=== PATIENT | female | born 1965 | race Caucasian/White ===

== ENCOUNTER 2023-09-20 17:16 | Emergency (ER) | payer SELFPAY ==
[~2023-09-20] VITALS: Ht 160 cm; Wt 56.4 kg
[2023-09-20 17:18] VITALS: BP 144/82; PULSE 97; TEMP 98.1
[2023-09-20] MEDS ORDERED: Ondansetron 4 MG/2 ML VIAL IV ONE (18:30)
[2023-09-20] MEDS ORDERED: fentaNYL 50 MCG/ML 2 ML VIAL IV ONE (18:30)
[2023-09-20] MEDS ORDERED: NS 1,000 ML IV ONE (18:30)
[2023-09-20] MEDS ORDERED: LORazepam 2 MG/ML 1 ML VIAL IV ONE ×2 (18:45→23:15)
[2023-09-20 18:54] LABS: COLLECTION METHOD IN
[2023-09-20 18:58] LABS: BASO # 0.1 K/mm3 (0.0-0.2); BASO % 0.4 % (0.0-2.0); EOS # 0.5 K/mm3 (0.0-0.7); EOS % 3.1 % (0.0-4.0); GRAN # 11.3 K/mm3 (1.4-6.5); GRAN % 73.5 % (42.2-75.2); HEMATOCRIT 42.1 % (37.0-47.0); HEMOGLOBIN 13.1 g/dl (12.5-16.0); LYMPH # 2.5 K/mm3 (1.2-3.4); LYMPH % 16.1 % (20.0-51.0); MEAN CELL VOLUME 80 fl (80.0-100.0); MEAN CORPUSCULAR HEMOGLOBIN 25 pg (27-31); MEAN CORPUSCULAR HGB CONC 31 g/dl (33.0-37.0); MEAN PLATELET VOLUME 9.8 fl (7.4-10.4); MONO % 6.5 % (1.7-9.3); PLATELET COUNT 560 K/mm3 (130-400); RED BLOOD COUNT 5.25 M/mm3 (4.10-5.30); REDCELL DISTRIBUTION WIDTH-CV 18.1 % (11.5-14.5)
[2023-09-20 19:10] LABS: URINE APPEARANCE CLEAR (CLEAR/HAZY); URINE BLOOD 2+ (NEGATIVE); URINE COLOR YELLOW (YELLOW); URINE GLUCOSE 3+ (NEGATIVE); URINE KETONE NEGATIVE (NEGATIVE); URINE NITRATE NEGATIVE (NEGATIVE); URINE PROTEIN(semi-quant) NEGATIVE (NEGATIVE); URINE UROBILINOGEN 0.2 E.U/dL (0.2-1.0)
[2023-09-20 19:15] LABS: TRICYCLIC ANTIDEPRESS URINE NEGATIVE (NEGATIVE)
[2023-09-20 19:15] LABS: ACETONE,SERUM NEGATIVE
[2023-09-20 19:17] LABS: ALANINE AMINOTRANSFERASE 16 U/L (0-55); ALBUMIN 3.2 g/dL (3.5-5.0); ALKALINE PHOSPHATASE 158 U/L (40-150); ANION GAP 12 mmol/L (7-16); AST,SGOT 12 U/L (5-34); BILIRUBIN,TOTAL 0.2 mg/dL (0.2-1.2); BLOOD UREA NITROGEN 7 mg/dL (10-20); C-REACTIVE PROTEIN 16.09 mg/dL (0.00-0.50); CHLORIDE 96 mEq/L (98-107); CREATININE, serum 1.13 mg/dL (0.57-1.11); POTASSIUM 3.8 mEq/L (3.5-4.5); SODIUM 132 mEq/L (136-145); TOTAL PROTEIN 8.4 g/dl (6.2-8.1)
[2023-09-20 19:19] LABS: GLUCOSE 519 mg/dL (70-99)
[2023-09-20 19:30] LABS: TROPONIN-I < 0.010 ng/mL (0.00-0.033)
[2023-09-20] MEDS ORDERED: Rabies Immune Globulin PF 300 UNITS/2 ML VIAL IM ONE (19:30)
[2023-09-20] MEDS ORDERED: NS & 20 mEq KCl 1,000 ML IV SCH (20:00)
[2023-09-20] MEDS ORDERED: Insulin Regular Human (NovoLIN R/HumuLIN R) IV ONE (20:00)
[2023-09-20] MEDS ORDERED: Doxycycline Hyclate 100 MG in NS 150 ML IV SCH (20:00)
[2023-09-20] MEDS ORDERED: Insulin Human Regular/NS 100 ML IV SCH (20:00)
[2023-09-20] MEDS ORDERED: Morphine 4 MG/ML VIAL IV ONE (20:15)
[2023-09-20] MEDS ORDERED: Acetaminophen 325 MG TAB PO PRN (20:15)
[2023-09-20] MEDS ORDERED: Albuterol/Ipratropium 3 MG-0.5 MG/3 ML Neb Soln IH PRN (20:45)
[2023-09-20] MEDS ORDERED: SUBOXONE 8 MG-21 TAB SL (21:58)
[2023-09-20] MEDS ORDERED: VALIUM 2MG T2 MG/TAB PO (21:58)
[2023-09-20] MEDS ORDERED: LANTUS100 U/ML SQ (22:00)
[2023-09-20 22:01] LABS: MAGNESIUM 2.3 mg/dL (1.6-2.6)
[2023-09-20] MEDS ORDERED: HUMALOG100 U/ML SQ (22:01)
[2023-09-20] MEDS ORDERED: HYDROmorphone 0.5 MG/0.5 ML SYRINGE IV ONE (22:15)
[2023-09-20 22:41] LABS: CALCIUM 7.4 mg/dL (8.4-10.2); CREATININE, serum 0.61 mg/dL (0.57-1.11); POTASSIUM 5.1 mEq/L (3.5-4.5)
[2023-09-20] MEDS ORDERED: Dextrose 50% Water 25 GM/50 ML SYRINGE IV PRN (22:45)
[2023-09-20] MEDS ORDERED: Dextrose (Glucose) 15 GM (4 x 3.75 GM) Chewable TABLET PACK PO PRN (22:45)
[2023-09-20] MEDS ORDERED: Glucagon 1 MG VIAL IM PRN (22:45)
[2023-09-21] MEDS ORDERED: Insulin Lispro (HumaLOG) SQ SCH
== END 2023-09-20 23:52 | disposition other institution (70) ==
LOC: COL.ER 17:16 → MEDICAL 20:07 → COL.ER 20:07
PROVIDERS: Nurse Practitioner; Nurse Practitioner Family
DX: E10.65 Type 1 diabetes mellitus with hyperglycemia (principal); L03.114 Cellulitis of left upper limb; F17.210 Nicotine dependence, cigarettes, uncomplicated
CPT/HCPCS: J0295; J1170; J1815; J2060; J2270; J2405; J3010; J3480; J7030